=== PATIENT | female | born 1965 | race Caucasian/White ===

== ENCOUNTER 2019-10-31 12:40 | Emergency (ER) | payer MEDICARE ==
[2019-10-31] MEDS ORDERED: Bacitracin 1 PK ONE (13:19)
[2019-10-31] MEDS ORDERED: Lidocaine 1% 20 ML MDV ONE (13:19)
== END 2019-10-31 13:56 | disposition home or self-care (01) ==
LOC: MADERS 12:40
DX: S61.210A Laceration without foreign body of right index finger without damage to nail, initial encounter (principal); F17.210 Nicotine dependence, cigarettes, uncomplicated; F43.10 Post-traumatic stress disorder, unspecified; Z79.899 Other long term (current) drug therapy; W26.0XXA Contact with knife, initial encounter
CPT/HCPCS: 12001; J2001

== ENCOUNTER 2020-10-12 19:55 | Emergency (ER) | payer MEDICARE, MEDICAID ==
[2020-10-12] MEDS ORDERED: Sodium Chloride 0.9% 1,000 ML ONE ×2 (20:23→23:45)
[2020-10-12] MEDS ORDERED: Fentanyl 100 MCG/2 ML VIAL ONE ×3 (20:23→23:44)
[2020-10-12] MEDS ORDERED: Ondansetron PF 4 MG/2 ML Vial ONE (20:23)
[2020-10-12 20:46] LABS: #Lymphocytes 1.1 thou/uL (1.20-3.40); #Monocytes 0.8 thou/uL (0.11-0.59); #Neutrophils 16.7 thou/uL (1.40-6.50); %Basophils 0.1 % (0.0-1.0); %Lymphocytes 5.9 % (21.0-51.0); %Monocytes 4.2 % (0.0-10.0); %Neutrophils 89.8 % (42.0-75.0); Hemoglobin 15.3 g/dL (12.0-16.0); Mean Corpuscular HGB CONC 31.9 g/dL (32.0-36.0); Mean Corpuscular Hemoglobin 33.4 pg (27.0-31.0); Mean Corpuscular Volume 104.7 fL (78.0-98.0); Mean Platelet Volume 10.2 fL (7.4-10.4); Platelet Count 240 thou/uL (130-400); RBC Distribution Width 11.7 % (11.5-14.5); Red Blood Cell (RBC) Count 4.58 mill/uL (4.20-5.40); White Blood Cell (WBC) Count 18.6 thou/uL (4.8-10.8)
[2020-10-12] MEDS ORDERED: Sodium Chloride 0.9% 500 ML ONE (20:52)
[2020-10-12] MEDS ORDERED: Sodium Chloride 0.9% 0 ML ONE (20:52)
[2020-10-12 21:06] LABS: ALT (SGPT) 14 U/L (8-55); AST (SGOT) 24 U/L (5-34); Albumin 3.9 g/dL (3.5-5.0); Alkaline Phosphatase 97 U/L (40-110); Anion Gap 16 mmol/L (10-20); BUN (Urea Nitrogen) 13 mg/dL (9.8-20.1); Bilirubin, Total 0.4 mg/dL (0.2-1.2); Calc. Creatinine Clearance 0 mL/min (70-130); Carbon Dioxide 19 mmol/L (22-29); Chloride 106 mmol/L (98-107); Globulin 3.5 g/dL (2.4-3.5); Glucose 122 mg/dL (70-105); Lipase 17 U/L (8-78); Potassium 3.7 mmol/L (3.5-5.1); Protein, Total 7.4 g/dL (6.0-8.3); Sodium 137 mmol/L (136-145)
[2020-10-12 22:06] LABS: Bacteria/HPF 4+ HPF (None Seen); Bilirubin Small (Negative); Blood, Urine Trace (Negative); Clarity Slightly Cloudy (Clear); Glucose, Urine (Dipstick) Negative (Negative); Ketone, Urine Trace mg/dL (Negative); Leukocyte Negative (Negative); Nitrite Positive (Negative); Protein, Urine (Dipstick) 100 mg/dL (Neg-Trace); RBC/HPF 0-3 HPF (0-3); Specific Gravity, Urine 1.025 (1.005-1.030); pH, Urine 5.5 (5.0-9.0)
[2020-10-12] MEDS ORDERED: Sodium Chloride 0.9% 250 ML 250 ML ONE (23:01)
[2020-10-12] MEDS ORDERED: Prochlorperazine 10 MG/2 ML VIAL ONE (23:45)
[2020-10-12] MEDS ORDERED: Ketorolac Tromethamine 30 MG/ML VIAL ONE (23:45)
[2020-10-12] MEDS ORDERED: Sodium Chloride 0.9% 100 ML ONE (23:45)
[2020-10-13] MEDS ORDERED: Fentanyl 100 MCG/2 ML VIAL ONE ×3 (04:15→11:59)
[2020-10-13] MEDS ORDERED: Phenazopyridine HCl 97.5 MG TABLET ONE (08:06)
[2020-10-13] MEDS ORDERED: Furosemide 40 MG TAB ONE (08:07)
[2020-10-13] MEDS ORDERED: Sodium Chloride 0.9% 1,000 ML ONE (10:21)
[2020-10-13] MEDS ORDERED: Sodium Chloride 0.9% 250 ML 250 ML ONE (10:21)
[2020-10-13] MEDS ORDERED: Magnesium Citrate 300 ML BOT ONE (11:51)
== END 2020-10-13 14:04 | disposition short-term general hospital (02) ==
LOC: MADERS 19:55
DX: A41.9 Sepsis, unspecified organism (principal); R00.0 Tachycardia, unspecified; R10.9 Unspecified abdominal pain; R63.8 Other symptoms and signs concerning food and fluid intake; R11.0 Nausea; Z21 Asymptomatic human immunodeficiency virus [HIV] infection status; G62.9 Polyneuropathy, unspecified; F17.210 Nicotine dependence, cigarettes, uncomplicated; I49.9 Cardiac arrhythmia, unspecified; Z79.891 Long term (current) use of opiate analgesic; Z79.899 Other long term (current) drug therapy
CPT/HCPCS: 36415; 74176; 80053; 81003; 81015; 83605; 83690; 85025; 87040; 87086; 96365; 96366; 96367; 96375; 96376; J0780; J1885; J1956; J2405; J3010; J3370; J3490; J7030; J7050